=== PATIENT | female | born 1970 | race Caucasian/White ===

== ENCOUNTER → 2019-05-13 | Outpatient (CLI) | payer BC ==
--- NOTE | 2019-05-16 18:33 | RAD ---
BILATERAL SCREENING MAMMOGRAM, 3-D History: Routine screening. Comparison: None. This is the baseline.. Technique: MLO and CC digital tomosynthesis (3D) images obtained. Radiologist reviewed these images on dedicated workstation. Findings: Breast Tissue Density D :The breasts are extremely dense, which lowers the sensitivity of mammography. There are no dominant masses, suspicious microcalcifications, or architectural distortion. Small asymmetry involving the left lower breast anteriorly is present probably representing summation of breast parenchyma. It is 1.1 cm from the nipple. IMPRESSION: Spot compression imaging of the left infra-areolar region is recommended. Ultrasound may be needed. BI-RADS Category 0: Incomplete: Need additional imaging evaluation. The images were reviewed with computer-aided detection. Patient information is entered into reminder system with a target due date for the next screening mammogram. Mammography is the most sensitive method for finding small breast cancers, but it does not detect them all and is not a substitute for careful clinical examination. A negative mammogram does not negate a clinically suspicious finding and should not result in delay in biopsying a clinically suspicious abnormality. "Our facility is accredited by the [employer] Mammography Program." Electronically signed by: Darion More MD (05/16/2019 6:30 PM) [id number]
== END ==
LOC: MAMMO 13:37
PROVIDERS: ATTEND Physician Assistant
DX: Z12.31 Encounter for screening mammogram for malignant neoplasm of breast (principal)
CPT/HCPCS: 77063; 77067

== ENCOUNTER → 2019-05-20 | Outpatient (CLI) | payer BC ==
--- NOTE | 2019-05-20 17:23 | RAD ---
Examination: 1. Left diagnostic mammogram. 2. Limited left breast ultrasound. INDICATION: 48-year-old woman recalled from new baseline screening for inferior subareolar nodular asymmetry. COMPARISON: 05/13/2019 bilateral mammogram. FINDINGS: Additional views of the left breast including a full-field left ML view and a left spot MLO view showed a change in configuration of the questioned asymmetry in a pattern suggestive of benign overlap of fibroglandular tissue. However since the breast parenchyma is heterogeneously dense, additional imaging by targeted left breast ultrasound was pursued. Limited ultrasound of the left breast identified at the 8:00 position 2 cm from the nipple a 4 mm simple cyst and adjacent to it, a benign-appearing fat lobule also measuring 4 mm. The cyst likely accounts for the mammographic finding recalled from screening and is sonographically benign. Technologist reports the patient denies any palpable areas of concern and there was no palpable finding evident during the ultrasound examination. IMPRESSION: Benign findings on left diagnostic mammogram and targeted left breast ultrasound. No evidence of malignancy. Recommend patient return to routine screening next doing one year in the absence of any clinical concerns. BI-RADS Category 2 Benign findings Patient entered into a reminder system with target due date for next mammogram.
== END | disposition home or self-care (01) ==
LOC: MAMMO 13:32
PROVIDERS: ATTEND Family Medicine
DX: N60.02 Solitary cyst of left breast (principal); R92.8 Other abnormal and inconclusive findings on diagnostic imaging of breast
CPT/HCPCS: 76641; 77065